=== PATIENT | male | born 1950 | race Hispanic/Latino ===

== ENCOUNTER 2022-08-20 11:35 | Emergency (ER) | payer OTHER ==
[2022-08-20] MEDS ORDERED: Ketorolac Tromethamine 30 MG/ML VIAL ONE (12:43)
== END 2022-08-20 12:48 ==
LOC: NAV ERS 11:35
DX: S40.011A Contusion of right shoulder, initial encounter (principal); S50.01XA Contusion of right elbow, initial encounter; E11.40 Type 2 diabetes mellitus with diabetic neuropathy, unspecified; N40.0 Benign prostatic hyperplasia without lower urinary tract symptoms; E78.00 Pure hypercholesterolemia, unspecified; I10 Essential (primary) hypertension; M19.90 Unspecified osteoarthritis, unspecified site; Z79.899 Other long term (current) drug therapy; Z79.4 Long term (current) use of insulin; W18.30XA Fall on same level, unspecified, initial encounter
CPT/HCPCS: 96372; J1885